=== PATIENT | male | born 1995 | race Caucasian/White ===

== ENCOUNTER 2021-10-16 03:09 | Emergency (ER) | payer OTHER, MEDICAID ==
[2021-10-16 03:30] VITALS: BP 124/101; TEMP 98.2
[2021-10-16 04:30] VITALS: PULSE 102
== END 2021-10-16 04:30 | disposition home or self-care (01) ==
LOC: COL.ER 03:09
DX: S69.91XA Unspecified injury of right wrist, hand and finger(s), initial encounter (principal); W22.09XA Striking against other stationary object, initial encounter